=== PATIENT | female | born 1970 | race Caucasian/White ===

== ENCOUNTER → 2017-05-23 | Day surgery (SDC) | payer OTHER | END | disposition home or self-care (01) | LOC: FMAMMOTONE 08:35 | PROVIDERS: ATTEND Surgery | PROC: 0HBU3ZX Excision of Left Breast, Percutaneous Approach, Diagnostic (ICD-10-PCS; principal; 2017-05-23) | DX: N64.59 Other signs and symptoms in breast (principal); Z53.8 Procedure and treatment not carried out for other reasons | CPT/HCPCS: 19081 ==

== ENCOUNTER 2020-03-06 20:13 | Emergency (ER) | payer OTHER ==
[2020-03-06 20:25] VITALS: TEMP 97.8; BMI 35.2
--- NOTE | 2020-03-06 20:27 | PDOC ---
Rapid Medical Evaluation Time Seen by Provider: 03/06/20 20:22 Medical Evaluation: Allergies Allergy/AdvReac Type Severity Reaction Status Date / Time No Known Allergies Allergy Verified 10/26/15 02:09 03/06/20 20:23 I have performed a brief in-person evaluation of this patient. The patient presents with a chief complaint of:chest tightness today after leaving niece's house, no cough, sob, f/c. Has h/seasonal and environmental allergies per pt. Of note, tested + for covid PCR in 01/06 Pertinent physical exam findings:stable, well aamir, clear chest/lungs I have ordered the following:cxr The patient will proceed to the ED for further evaluation. 03/06/20 20:27 Discharge Disposition - Diagnosis Chest tightness - Referrals - Patient Instructions - Post Discharge Activity
[2020-03-06] MEDS ORDERED: DEXAMETHASONE SOD PHOSPHATE 10 MG/1 ML VIAL IM ONE (21:32)
[2020-03-06] MEDS ORDERED: DEXAMETHASONE 4 MG TABLET (FP) PO ONE ×2 (21:34→21:38)
[2020-03-06] MEDS ORDERED: ALBUTEROL SO4 2.5/IPRATROPIUM 0.5 INH SOL 3 ML VIAL.NEB. NEB ONE ×2 (21:35→22:28)
--- NOTE | 2020-03-06 21:35 | PDOC ---
History of Present Illness - General Chief Complaint: Cold Symptoms Stated Complaint: CHEST TIGHTNESS/DISCOMFORT Time Seen by Provider: 03/06/20 20:22 - History of Present Illness Initial Comments: Sonya Canales is a 49yo woman with a history of intermittent asthma, seasonal allergies, and recent COVID infection in December who presents with chest tightness this evening. She denies hospitalization or need for supplemental oxygen, and she has not had any continued symptoms. Today she went to her niece's house and felt mid-sternal chest tightness after leaving. She does note that her niece has dogs, which she does have an allergy to. She tried using her home albuterol inhaler without significant improvement so presented to the ED for evaluation. Ms Canales states that she has had similar episodes in the past that were diagnos ed as asthma. These usually occur about once per year. She has never seen a taxi driver. Past History - Medical History Allergies/Adverse Reactions: Allergies Allergy/AdvReac Type Severity Reaction Status Date / Time No Known Allergies Allergy Verified 10/26/15 02:09 Home Medications: Ambulatory Orders Cetirizine HCl 10 mg PO DAILY #30 tablet 03/07/20 Inhaler, Assist Devices [Space Chamber Plus] 1 each MC UTDICT #1 spacer 03/07/20 - Surgical History Cholecystectomy: Yes - Psycho-Social/Smoking History Smoking Status: No Smoking History: Never smoked Have you smoked in the past 12 months: No Number of Cigarettes Smoked Daily: 0 - Substance Abuse Hx (Audit-C & DAST Scrn) How often the patient has a drink containing alcohol: Never Score: In Men: 4 or > Positive; In Women: 3 or > Positive: 0 Screen Result (Pos requires Nsg. Audit-10AR): Negative Review of Systems - Review of Systems Comments:: General: No fevers, no chills, no weight or appetite change, no malaise HEENT: No changes in vision, no changes in hearing, no congestion, no sore throat CV: No chest pain, no palpitations, no LE edema Pulm: +SOB, +chest tightness GI: No nausea or vomiting, no change in bowel habits, no melena : No frequency, no urgency, no dysuria Musc: No back pain, no joint swelling, no recent injury Skin: No rash, no lesions, no erythema Endo: No excessive thirst, no heat/cold intolerance Heme: No unusual bruising or bleeding, no swollen glands Neuro: No syncope, no numbness/tingling, no focal weakness Vasc: No claudication Psych: No recent change in mood, no SI or HI *Physical Exam - Vital Signs Last Vital Signs Temp Pulse Resp BP Pulse Ox 97.8 F 89 20 142/92 98 03/06/20 20:21 03/06/20 20:21 03/06/20 20:21 03/06/20 20:21 03/06/20 20:21 - Physical Exam General: Comfortable, no acute distress HEENT: Atraumatic, PERRL, EOMI, MMM, voice normal, normal neck ROM Cards: RRR, no murmur appreciated Pulm: Diminished breath sounds, no wheezing appreciated Ext: Atraumatic. No LE edema. ROM intact. WWP Skin: Normal color, no rashes or lesions Neuro: A&Ox3, CN grossly intact, normal speech, motor/sensory grossly intact and symmetric Psych: Mood appropriate to situation ED Treatment Course - LABORATORY CBC & Chemistry Diagram: 03/06/20 21:50 03/06/20 21:50 Medical Decision Making - Medical Decision Making 03/06/20 21:35 Sonya Canales is a 49yo woman with a history of intermittent asthma, seasonal allergies, and recent COVID infection in December who presents with isolated chest tightness this evening. - Possible asthma due to diminished breath sounds on exam, but no wheezing appreciated. Ddx also includes ACS, sequelae from COVID, PE - CBC, CMP, trop, d-dimer - carol Jeong 03/06/20 22:30 - D-dimer elevated to 1565. Updated pt, discussed CTA to evaluate for PE given recent COVID infection. Pt agrees, will send for CTA chest once chemistry is available - Remainder of labs unremarkable - Pt reports still feeling chest tightness, minimal improvement following neb 03/07/20 00:37 - CTA negative - Pt feeling improved, ready to go home. Will follow up with her PMD on Sunday Discussed with Dr Robert Tolentino PGY3 Discharge - Discharge Information Problems reviewed: Yes Clinical Impression/Diagnosis: Chest tightness Seasonal allergies Qualifiers: Allergic rhinitis trigger: unspecified Qualified Code(s): J30.2 - Other seasonal allergic rhinitis Condition: Stable Disposition: HOME - Admission No - Additional Discharge Information Prescriptions: Cetirizine HCl 10 mg PO DAILY #30 tablet Inhaler, Assist Devices [Space Chamber Plus] 1 each UTDICT #1 spacer - Follow up/Referral - Patient Discharge Instructions Patient Printed Discharge Instructions: DI for Reactive Airway Disease-Adult Additional Instructions: Discharge Instructions: You were seen in the emergency department for chest tightness. This is most likely due to a flare-up of your asthma and allergies. Home Care and Follow Up: - Use your albuterol inhaler every 4 hours as needed for difficulty breathing. Use the prescribed spacer with the inhaler as instructed. - You have been prescribed an allergy medicine. Take this once every day until you are able to follow up with your regular doctor; discuss continuing this medication with your doctor. - Follow up with your regular doctor within the next week. - Seek immediate care if you have worsening symptoms, difficulty breathing that does not improve with medications, you need your albuterol inhaler more than every 4 hours, you have chest pain, or you have any other medical emergency. - Post Discharge Activity
[2020-03-06] MEDS: ALBUTEROL SO4 2.5/IPRATROPIUM 0.5 INH SOL 3 ML VIAL.NEB. NEB SCH ×2 (21:53→22:09)
[2020-03-06 21:58] LABS: BASO % 1.1 % (0-2.0); EOS % 2.3 % (0-4.5); HEMATOCRIT 39.8 % (32.4-45.2); HEMOGLOBIN 13.4 GM/dL (10.7-15.3); LYMPH % 21.9 % (8-40); MCH 28.5 pg (25.7-33.7); MCHC 33.8 g/dl (32.0-36.0); MEAN CELL VOLUME 84.4 fl (80-96); MEAN PLT VOLUME 9.8 fl (7.5-11.1); MONO % 9.8 % (3.8-10.2); NEUT % 64.9 % (42.8-82.8); PLATELET COUNT 259 K/MM3 (134-434); RBC 4.72 M/mm3 (3.60-5.2); RDW 14.6 % (11.6-15.6); WHITE BLOOD COUNT 11.8 K/mm3 (4.0-10.0)
[2020-03-06 22:30] LABS: ALBUMIN 3.4 g/dl (3.4-5.0); ALK PHOS 74 U/L (45-117); ANION GAP 12 MMOL/L (8-16); BILIRUBIN,TOTAL 0.3 mg/dL (0.2-1); BLOOD UREA NITROGEN 16.5 mg/dL (7-18); CALCIUM 8.6 mg/dL (8.5-10.1); CHLORIDE 106 mmol/L (98-107); CO2 19 mmol/L (21-32); CREATININE 0.8 mg/dL (0.55-1.3); GLUCOSE,RANDOM 95 mg/dL (74-106); POTASSIUM 4.3 mmol/L (3.5-5.1); SGOT/AST 18 U/L (15-37); SGPT/ALT 31 U/L (13-61); SODIUM 137 mmol/L (136-145); TOT PROT 7.6 g/dl (6.4-8.2)
--- NOTE | 2020-03-06 23:25 | PDOC ---
Documentation entered by Brigitte Pete SCRIBE, acting as scribe for Shazia Jones MD. Shazia Jones MD: This documentation has been prepared by the leisaeJuan R Sydney, SCRIBE, under my direction and personally reviewed by me in its entirety. I confirm that the documentation accurately reflects all work, treatment, procedures, and medical decision making performed by me. Attending Attestation - Resident Resident Name: AlexkimberHeather - ED Attending Attestation I have performed the following: I have examined & evaluated the patient, The case was reviewed & discussed with the resident, I agree w/resident's findings & plan, Exceptions are as noted - HPI HPI: 03/06/20 22:58 Patient is a 49 year old female with a significant past medical history of asthma who presents to the ED with sudden onset chest tightness that began today. As per patient, she was at her nieces home with her dogs, and upon returning home, experienced some mid-sternal chest tightness. Patient notes taking her albuterol inhaler with no relief. Patient endorses similar symptoms in the past, stating she has similar episodes once per year secondary to asthma. Denies fever, chills, nausea, vomiting, lightheadedness. Denies urinary changes. Allergies: NKDA - Physicial Exam PE: 03/06/20 23:01 Pt is obese and she has clear lungs sounds SHe has normal heart rate Pt has soft NT ND abd no c/c/eneuro exam normal - Medical Decision Making 03/06/20 22:13 Pt has a D-Dimer that is 1500; she will get a CTA to r/o PE Pt has a hx of covid+ 2 mos ago; and returns now with CP 03/06/20 23:09 chem and cbc normal 03/07/20 00:21 Patient Name: ANNAMARIA METCALF THIS IS A PRELIMINARY REPORT FROM [facility] DATE OF SERVICE: 2020-03-06 23:35:58 IMAGES: [id number] EXAM: CHEST CTA HISTORY: Evaluate for PE COMPARISON: None. FINDINGS: There is no PE or dissection. Heart size is normal. The trachea and bronchi are patent. There is no pleural or pericardial effusion. The lungs are clear. No fractures identified. The upper abdominal structures are normal. IMPRESSION: No evidence of pathology. STABLE FOR D/C HOME Heart Score/ECG Review - ECG Intrepretation Rhythm: Regular Rhythm - [place]: Normal - P and [place] Atrial Enlargement: Right Delta Wave(s) Present: No WPW: No - QRS Poor R Wave Progression: No Q Wave Present: No - ST and T Early Repolarization: No Non Specific ST-T Wave changes: No Flattened T Waves: No Prolonged Q-T Interval: No - ECG Impressions Normal ECG: Yes Non-specific ST Elevation: No Ischemic Changes: No Bradycardia: No Torsades xavier Pointes: No WPW: No Discharge - Discharge Information Problems reviewed: Yes Clinical Impression/Diagnosis: Chest tightness Seasonal allergies Qualifiers: Allergic rhinitis trigger: unspecified Qualified Code(s): J30.2 - Other seasonal allergic rhinitis Condition: Stable Disposition: HOME - Additional Discharge Information Prescriptions: Cetirizine HCl 10 mg PO DAILY #30 tablet Inhaler, Assist Devices [Space Chamber Plus] 1 each UTDICT #1 spacer - Follow up/Referral - Patient Discharge Instructions Patient Printed Discharge Instructions: DI for Reactive Airway Disease-Adult Additional Instructions: Discharge Instructions: You were seen in the emergency department for chest tightness. This is most likely due to a flare-up of your asthma and allergies. Home Care and Follow Up: - Use your albuterol inhaler every 4 hours as needed for difficulty breathing. Use the prescribed spacer with the inhaler as instructed. - You have been prescribed an allergy medicine. Take this once every day until you are able to follow up with your regular doctor; discuss continuing this medication with your doctor. - Follow up with your regular doctor within the next week. - Seek immediate care if you have worsening symptoms, difficulty breathing that does not improve with medications, you need your albuterol inhaler more than every 4 hours, you have chest pain, or you have any other medical emergency. - Post Discharge Activity
[2020-03-07 00:59] VITALS: BP 132/87; PULSE 87
--- NOTE | 2020-03-08 09:21 | EKG ---
Test Reason : Blood Pressure : / mmHG Vent. Rate : 095 BPM Atrial Rate : 095 BPM P-R Int : 128 ms QRS Dur : 080 ms QT Int : 362 ms P-R-T Axes : 029 009 030 degrees QTc Int : 454 ms SINUS RHYTHM WITH FREQUENT PREMATURE VENTRICULAR COMPLEXES OTHERWISE NORMAL ECG NO PREVIOUS ECGS AVAILABLE Confirmed by Thaddeus Edwards ([id number]) on 03/08/2020 9:20:55 AM Referred By: Confirmed By:Thaddeus Edwards
== END 2020-03-07 00:58 | disposition home or self-care (01) ==
LOC: JER 20:13
PROC: 3E033NZ Introduction of Analgesics, Hypnotics, Sedatives into Peripheral Vein, Percutaneous Approach (ICD-10-PCS; principal; 2020-03-06)
PROC: 3E0F7GC Introduction of Other Therapeutic Substance into Respiratory Tract, Via Natural or Artificial Opening (ICD-10-PCS; 2020-03-06)
DX: R07.89 Other chest pain (principal)
CPT/HCPCS: 36415; 71046-TC-FY; 71275-TC; 80053; 82550; 84484; 85025; 85379; 93005; 93010; 99285-25; Q9967

== ENCOUNTER 2020-08-02 11:32 | Emergency (ER) | payer OTHER ==
[2020-08-02 11:37] VITALS: TEMP 98.1; BMI 35.2
[2020-08-02] MEDS ORDERED: LIDOCAINE 5% TOPICAL PATCH TP ONE (12:06)
[2020-08-02] MEDS ORDERED: KETOROLAC TROMETHAMINE 60 MG/2 ML VIAL IM ONE (12:06)
[2020-08-02] MEDS ORDERED: METHOCARBAMOL 500 MG TABLET PO ONE (12:06)
[2020-08-02] MEDS ORDERED: METHOCARBAMOL 500 MG TABLET ONE (12:12)
[2020-08-02] MEDS ORDERED: LIDOCAINE 5% TOPICAL PATCH ONE (12:12)
[2020-08-02] MEDS ORDERED: KETOROLAC TROMETHAMINE 30 MG/1 ML VIAL ONE (12:13)
[2020-08-02 13:24] VITALS: BP 143/89; PULSE 97
== END 2020-08-02 13:23 | disposition home or self-care (01) ==
LOC: JERFT 11:32
PROC: 3E0233Z Introduction of Anti-inflammatory into Muscle, Percutaneous Approach (ICD-10-PCS; principal; 2020-08-02)
DX: M54.5 Low back pain (principal)
CPT/HCPCS: 71101-TC-RT-FY; 72050-TC-FY; 72070-TC-FY; 72100-TC-FY; 99285-25

== ENCOUNTER 2024-03-06 11:52 | Emergency (ER) | payer OTHER ==
[2024-03-06 12:06] VITALS: BP 117/80; PULSE 99; RESP 18; TEMP 98.5; BMI 37.0
[2024-03-06] MEDS ORDERED: KETOROLAC TROMETHAMINE 30 MG/1 ML VIAL ONE (12:51)
[2024-03-06] MEDS: KETOROLAC TROMETHAMINE 30 MG/1 ML VIAL IM ONE (12:55)
== END 2024-03-06 12:55 | disposition home or self-care (01) ==
LOC: JERFT 11:52
PROC: 3E0133Z Introduction of Anti-inflammatory into Subcutaneous Tissue, Percutaneous Approach (ICD-10-PCS; principal; 2024-03-06)
DX: M54.50 Low back pain, unspecified (principal); X50.0XXA Overexertion from strenuous movement or load, initial encounter; Y99.0 Civilian activity done for income or pay
CPT/HCPCS: 99284-25

== ENCOUNTER 2024-08-21 04:34 | Day surgery (SDC) | payer OTHER ==
[2024-08-15 12:03] VITALS: BMI 34.7
[2024-08-21] MEDS ORDERED: ACETAMINOPHEN 500 MG TABLET (FP) PO PRN (09:08)
[2024-08-21 13:12] VITALS: RESP 20
[2024-08-21] MEDS: LIDOCAINE HCL 1% PRESERVATIVE FREE - 30ML VIAL IJ ONE ×2 (13:44)
[2024-08-21] MEDS: IOHEXOL 180 MG/1 ML ML IJ ONE ×2 (13:48)
[2024-08-21] MEDS: DEXAMETHASONE SOD PHOSPHATE 10 MG/1 ML VIAL IVPUSH ONE ×2 (13:51)
[2024-08-21 14:12] VITALS: BP 111/69; PULSE 88; TEMP 97.1
== END 2024-08-21 15:00 | disposition home or self-care (01) ==
LOC: JASU-SURG 04:34
PROVIDERS: ATTEND Pain Medicine Pain Medicine
PROC: 3E0R3BZ Introduction of Anesthetic Agent into Spinal Canal, Percutaneous Approach (ICD-10-PCS; 2024-08-21)
PROC: 3E0R33Z Introduction of Anti-inflammatory into Spinal Canal, Percutaneous Approach (ICD-10-PCS; principal; 2024-08-21 15:00)
DX: M54.16 Radiculopathy, lumbar region (principal)
CPT/HCPCS: 76000-TC-FY; 81025; J1100